=== PATIENT | male | born 1960 | race African-American/Black ===

== ENCOUNTER 2025-02-11 10:09 | Inpatient (IN) | payer OTHER ==
[2025-02-11 10:34] VITALS: BMI 24.6
[2025-02-11] MEDS ORDERED: POLYETHYLENE GLYCOL (HEALTHYLAX) 3350 17 GM PACKET PO PRN (11:17)
[2025-02-11] MEDS ORDERED: METHOCARBAMOL 500 MG TABLET PO PRN (11:17)
[2025-02-11] MEDS ORDERED: NALOXONE (NARCAN) HCL 4 MG/0.1 ML SPRAY NS PRN (11:17)
[2025-02-11] MEDS ORDERED: LOPERAMIDE HCL 2 MG CAPSULE PO PRN (11:17)
[2025-02-11] MEDS ORDERED: IBUPROFEN 400 MG TABLET (FP) PO PRN (11:17)
[2025-02-11] MEDS ORDERED: MAG HYDROX/AL HYDROX/SIMETH 30 ML UNIT-DOSE CUP PO PRN (11:17)
[2025-02-11] MEDS ORDERED: BENZONATATE 200 MG CAPSULE PO PRN (11:17)
[2025-02-11] MEDS ORDERED: DICYCLOMINE HCL 10 MG CAPSULE PO PRN (11:17)
[2025-02-11] MEDS ORDERED: BISMUTH SUBSALICYLATE 262 MG/15 ML BTL PO PRN (11:17)
[2025-02-11] MEDS ORDERED: ONDANSETRON *ODT* 4 MG TABLET SL PRN (11:17)
[2025-02-11] MEDS ORDERED: BENZOCAINE/MENTHOL (CHLORASEPTIC ) LOZENGE MM PRN (11:17)
[2025-02-11] MEDS ORDERED: MAGNESIUM HYDROX 2400MG/30ML ORAL SUSPENSION 30 ML CUP PO PRN (11:17)
[2025-02-11] MEDS ORDERED: guaiFENesin 600 MG TABLET.ER (FP) PO PRN (11:17)
[2025-02-11] MEDS ORDERED: LORazepam 1 MG TABLET PO PRN (11:17)
[2025-02-11] MEDS ORDERED: ACETAMINOPHEN 325 MG TABLET (FP) PO PRN (11:17)
[2025-02-11] MEDS ORDERED: diazePAM 5 MG TABLET PO PRN (11:33)
[2025-02-11] MEDS ORDERED: LORazepam 2 MG TABLET PO SCH (17:00)
[2025-02-11] MEDS: diazePAM 5 MG TABLET PO SCH (17:30)
[2025-02-11] MEDS: THIAMINE 100 MG TABLET PO SCH (22:37)
[2025-02-11] MEDS: MELATONIN 5 MG TABLETS PO SCH (22:37)
[2025-02-11] MEDS: CARVEDILOL 6.25 MG TABLET (FP) PO SCH (22:40)
[2025-02-12] MEDS: EMPAGLIFLOZIN (JARDIANCE) 10 MG TABLET PO SCH (07:57)
[2025-02-12] MEDS: PRENATAL VITAMINS W/ FOLIC ACID TABLET (FP) PO SCH (10:18)
[2025-02-12] MEDS: LOSARTAN POTASSIUM 25 MG TABLET PO SCH (10:18)
[2025-02-12] MEDS: ASPIRIN COATED 81 MG TABLET.EC PO SCH (10:19)
[2025-02-12] MEDS: HYDROCHLOROTHIAZIDE 25 MG TABLET (FP) PO SCH (10:19)
[2025-02-12] MEDS: ATORVASTATIN CA 80 MG TABLET (FP) PO SCH (10:19)
[2025-02-12 11:29] LABS: HEMATOCRIT 37.3 % (40.1-51.0); HEMOGLOBIN 12.4 g/dL (13.7-17.5); MCHC 33.2 g/dl (32.3-36.5); MEAN CELL VOLUME 96.1 fl (79.0-92.2); PLATELET COUNT 274 x10^3/uL (163-337); RDW 12.3 % (12.2-16.4)
[2025-02-12 11:34] LABS: POTASSIUM 4.7 mmol/L (3.5-5.1)
[2025-02-12 11:41] LABS: ALBUMIN 3.4 g/dl (3.4-5.0); BLOOD UREA NITROGEN 24.2 mg/dL (7-18); CALCIUM 9.5 mg/dL (8.5-10.1)
[2025-02-12 11:44] LABS: CREATININE 1.7 mg/dL (0.55-1.3)
[2025-02-12 11:45] LABS: BILIRUBIN,TOTAL 0.4 mg/dL (0.2-1); TOT PROT 7.3 g/dl (6.4-8.2)
[2025-02-13] MEDS ORDERED: LORazepam 1 MG TABLET PO SCH (05:00)
[2025-02-13] MEDS: diazePAM 5 MG TABLET PO SCH (05:48)
[2025-02-13] MEDS: LOSARTAN POTASSIUM 25 MG TABLET PO ONE (13:16)
[2025-02-13] MEDS: NALTREXONE HCL 50 MG TABLET PO ONE (13:16)
[2025-02-13] MEDS: IBUPROFEN 600 MG TABLET (FP) PO PRN (15:36)
[2025-02-13] MEDS: MIRTAZAPINE 15 MG TABLET (FP) PO SCH (21:59)
[2025-02-14] MEDS ORDERED: LORazepam 0.5 MG TABLET PO PRN
[2025-02-14] MEDS ORDERED: LORazepam 0.5 MG TABLET PO SCH (05:00)
[2025-02-14] MEDS: diazePAM 5 MG TABLET PO SCH (05:48)
[2025-02-14] MEDS: NALTREXONE HCL 50 MG TABLET PO SCH (09:24)
[2025-02-14] MEDS: LOSARTAN POTASSIUM 50 MG TABLET PO SCH (09:24)
[2025-02-14] MEDS: hydrOXYzine PAMOATE 25 MG CAPSULE (FP) PO PRN (22:31)
[2025-02-15] MEDS ORDERED: LORazepam 0.5 MG TABLET PO ONE (05:00)
[2025-02-15] MEDS: diazePAM 5 MG TABLET PO ONE (05:41)
[2025-02-17 06:49] VITALS: BP 145/87; PULSE 76; RESP 17; TEMP 97.6
== END 2025-02-17 09:31 | disposition other institution (70) | DRG 774 ==
LOC: YASAS 10:09 → Y6N 11:52
PROVIDERS: ADMIT Allergy & Immunology; ATTEND Family Medicine Addiction Medicine
PROC: HZ2ZZZZ Detoxification Services for Substance Abuse Treatment (ICD-10-PCS; principal; 2025-02-11)
DX: F10.230 Alcohol dependence with withdrawal, uncomplicated (principal); F14.20 Cocaine dependence, uncomplicated; F12.20 Cannabis dependence, uncomplicated; F19.282 Other psychoactive substance dependence with psychoactive substance-induced sleep disorder; F32.A Depression, unspecified; F90.9 Attention-deficit hyperactivity disorder, unspecified type; E78.2 Mixed hyperlipidemia; I25.10 Atherosclerotic heart disease of native coronary artery without angina pectoris; I10 Essential (primary) hypertension; E11.69 Type 2 diabetes mellitus with other specified complication; Z79.84 Long term (current) use of oral hypoglycemic drugs; R20.2 Paresthesia of skin; I69.898 Other sequelae of other cerebrovascular disease; Z99.89 Dependence on other enabling machines and devices
CPT/HCPCS: 36415; 80053; 80305; 80307; 82962; 83036; 85027; 86780; 93005; 93010